=== PATIENT | male | born 1980 | race African-American/Black ===

== ENCOUNTER 2016-10-09 15:34 | Inpatient (IN) | payer OTHER ==
[2016-10-09] MEDS ORDERED: RX INFO: IV CONTRAST WAS GIVEN 1 EACH MISC MISCELLANE PRN (16:08)
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
[2016-10-09 17:05] LABS: Anisocytosis Slight; Basophils % (A) 0 %; CH 31.7; CHCM 35.4; Eosinophils # (A) 0.1 k/uL (0-0.7); Eosinophils % (A) 1 %; HCT 44.3 % (39.0-53.0); HGB 14.8 gm/dL (13.0-17.5); Luc % (Auto) 2; Lymphocytes # (A) 1.3 k/uL (1.0-4.8); Lymphocytes % (A) 20 %; MCH 30.2 pg (25.0-35.0); MCHC 33.5 g/dL (31.0-37.0); MCV 90.2 fL (80.0-100.0); Mean Platelet Volume 7.9; Monocytes # (A) 0.3 k/uL (0-1.0); Monocytes % (A) 6 %; Neutrophils # (A) 4.4 k/uL (1.3-7.7); Neutrophils % (A) 71 %; RBC 4.91 m/uL (4.30-5.90); RDW 16.3 % (11.5-15.5); WBC 6.2 k/uL (3.8-10.6)
[2016-10-09 17:14] LABS: ALT 24 U/L (21-72); AST 21 U/L (17-59); Alkaline Phosphatase 87 U/L (38-126); Anion Gap 7 mmol/L; Blood Urea Nitrogen 12 mg/dL (9-20); Calcium 9.6 mg/dL (8.4-10.2); Carbon Dioxide 28 mmol/L (22-30); Chloride 107 mmol/L (98-107); Glucose 91 mg/dL (74-99); Non-African American GFR(MDRD) >60 (>60 ml/min/1.73 sqM); Potassium 4.3 mmol/L (3.5-5.1); Sodium 142 mmol/L (137-145); Total Bilirubin 0.5 mg/dL (0.2-1.3); Total Protein 7.4 g/dL (6.3-8.2)
--- NOTE | 2016-10-09 18:17 | CT ---
EXAMINATION TYPE: CT angio head neck DATE OF EXAM: 10/09/2016 HISTORY: HANGING SUICIDE ATTEMPT X3 DAYS AGO. Pain. COMPARISON: NONE CT DLP: 293.5 mGycm. Automated Exposure Control for Dose Reduction was Utilized. TECHNIQUE: CTA scan of the head and neck are performed with IV Contrast, patient injected with 65 mL of Omnipaque 350, axial images are obtained, coronal and sagittal reformatted images are reviewed. T hree-D reconstructed images are created on an independent workstation and reviewed. FINDINGS: Carotid/Vascular Structures: There is bovine type arch which is normal variant. No significant plaque in the aortic arch or branching vessels is present. The right common carotid artery shows normal or igin from the right brachiocephalic artery. There is no significant plaque or stenosis along course o f the right common or internal carotid artery. There is patent external carotid artery without signif icant stenosis. There is no significant plaque or stenosis in the left common or internal carotid arteries including at level of carotid bulb. There is patent left external carotid artery without significant plaque or stenosis. No linear hypodensity to suggest dissection is seen in carotid or vertebral arteries. There is codomi nant vertebral basilar system. Vertebral arteries are patent to basilar junction. Hypoplastic posteri or communicating arteries are noted bilaterally. No significant stenosis or aneurysmal change is seen . Anterior circulation shows no significant plaque or stenosis. Patent anterior communicating artery is not well visualized. Other: There is right globe proptosis identified. There is acute comminuted fracture deformity throug h the right inferior orbital floor. No inferior displacement of inferior rectus muscle is seen. There is intraorbital emphysema inferiorly present. There is moderate preseptal hematoma anteriorly and in feriorly noted. There is dependent opacification or hemorrhage with air-fluid level in the right maxi llary sinus. There is additional comminuted fracture deformity medial wall right orbit. The intracona l fat is preserved. Visualized brain parenchyma shows no hydrocephalus or midline shift. The airway is patent. Lung apices are clear. No acute cervical fracture is identified. IMPRESSION: 1. No significant stenosis in common or internal carotid arteries bilaterally. No evidence of dissect ion in carotid or vertebral arteries bilaterally. 2. No significant stenosis or aneurysmal change in the [place]. 3. Acute comminuted blowout type fracture inferior right orbital floor with additional comminuted dis placed medial right orbital wall fracture. Proptosis of right globe is seen. There is moderate presep ron hematoma. No post septal hematoma identified. Intraorbital emphysema is seen. Small amount of hem orrhage into right maxillary sinus is noted. Ophthalmology consult advised.
[2016-10-09] MEDS ORDERED: ZIPRASIDONE 20 MG VIAL IM PRN (22:41)
[2016-10-09] MEDS ORDERED: MAG HYDROX/AL HYDROX/SIMETH 30 ML CUP PO PRN (22:41)
[2016-10-09] MEDS ORDERED: MAGNESIUM HYDROXIDE 2,400 MG/10 ML CUP PO PRN (22:41)
[2016-10-09] MEDS ORDERED: hydrOXYzine PAMOATE 25 MG CAP PO PRN (22:48)
[2016-10-09] MEDS: CLINDAMYCIN 150 MG CAP PO SCH (22:54)
[2016-10-09 23:24] LABS: Appearance,Urine Clear (Clear); Bilirubin,Urine Negative (Negative); Glucose,Urine (UA) Negative (Negative); Ketones,Urine Negative (Negative); Leukocyte Esterase,Urine Negative (Negative); Nitrite,Urine Negative (Negative); PH, Urine 7.5 (5.0-8.0); Protein,Urine Negative (Negative); UA Billing (MACRO vs. MICRO) CHEM; Urobilinogen,Urine <2.0 mg/dL (<2.0)
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
[2016-10-10] MEDS: CLINDAMYCIN 150 MG CAP PO SCH ×4 (06:25→23:07)
[2016-10-10] MEDS: PARoxetine 20 MG TAB PO SCH (08:33)
[2016-10-10] MEDS: LITHIUM CARBONATE 300 MG CAP PO SCH ×2 (08:33→20:00)
[2016-10-10] MEDS: RITONAVIR 100 MG TAB PO SCH ×3 (08:33→15:50)
[2016-10-10] MEDS: ALBUTEROL INHALER 60 PUFF/8 GM INHALER INHALATION PRN (09:35)
[2016-10-10 12:08] LABS: Lithium 0.7 mmol/L
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
[2016-10-10] MEDS: Darunavir Ethanolate [Prezista] 800 MG PO SCH (15:50)
[2016-10-10] MEDS: ABACAVIR LAMIVUDINE PO SCH (15:50)
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
[2016-10-11] MEDS: ACETAMINOPHEN TAB 325 MG TAB PO PRN ×2 (01:58→09:02)
[2016-10-11] MEDS: LEVOTHYROXINE 50 MCG TAB PO SCH (06:32)
[2016-10-11] MEDS: CLINDAMYCIN 150 MG CAP PO SCH ×4 (06:32→23:04)
[2016-10-11] MEDS: Darunavir Ethanolate [Prezista] 800 MG PO SCH (08:58)
[2016-10-11] MEDS: ABACAVIR LAMIVUDINE PO SCH (08:58)
[2016-10-11] MEDS: RITONAVIR 100 MG TAB PO SCH (08:59)
[2016-10-11] MEDS: PARoxetine 20 MG TAB PO SCH (09:02)
[2016-10-11] MEDS: LITHIUM CARBONATE 300 MG CAP PO SCH ×2 (09:02→20:28)
[2016-10-11] MEDS: ALBUTEROL INHALER 60 PUFF/8 GM INHALER INHALATION PRN (09:25)
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
[2016-10-12] MEDS: LEVOTHYROXINE 50 MCG TAB PO SCH (06:16)
[2016-10-12] MEDS: CLINDAMYCIN 150 MG CAP PO SCH ×2 (06:16→14:33)
[2016-10-12] MEDS: ALBUTEROL INHALER 60 PUFF/8 GM INHALER INHALATION PRN (08:56)
[2016-10-12] MEDS: PARoxetine 20 MG TAB PO SCH ×2 (10:18→10:54)
[2016-10-12] MEDS: Darunavir Ethanolate [Prezista] 800 MG PO SCH ×2 (10:18→10:55)
[2016-10-12] MEDS: LITHIUM CARBONATE 300 MG CAP PO SCH ×3 (10:18→20:51)
[2016-10-12] MEDS: ABACAVIR LAMIVUDINE PO SCH ×2 (10:18→10:55)
[2016-10-12] MEDS: RITONAVIR 100 MG TAB PO SCH ×2 (10:19→10:54)
--- NOTE | 2016-10-12 10:25 | P.PN ---
Progress Note - Text Interval history: The patient's is found in his room he follows me to an interview room. He reports his mood continues to be depressed he still feels worthless and is still ambivalent about surviving the suicide attempt. He feels that he has no purpose. He reported having some nausea this morning yesterday he states he attended groups. He was seen by the internal medicine group and was started on levothyroxine for an elevated TSH presumed to be subclinical hypothyroidism in the context of lithium use. The patient continues to feel that he has done the best with the Paxil and lithium. He describes having some difficulty falling asleep we decided to initiate melatonin. Mental status exam: The patient is an alert -Maur[place] male he has right- sided infraorbital bruising and resolving hemorrhage of his right sclera. Eye contact is appropriate speech is soft spontaneous fluent. He endorses a continued depressed mood with hopelessness feelings. He reports passive suicidal ideation. He reports no homicidal ideation. He endorses no auditory or visual hallucinations or specific delusions. There is no evidence of psychosis. He does not appear hypomanic or manic. Insight and judgment limited. He demonstrates no verbal or physical aggressiveness. Plan: The patient will continue on his current psychotropic medications. I will discontinue the Vistaril and we will add melatonin 5 mg at bedtime. Vital signs reviewed. He is encouraged to continue participating in group. We will monitor him for safety. He requires continued psychiatric hospitalization.
--- NOTE | 2016-10-12 17:22 | P.PN ---
Subjective Principal diagnosis: Patient seen and examined today per RN request due to hypotension and diarrhea 36-year-old male was currently incarcerated in prison but was sent to inpatient psych due to suicidal attempt. I saw the patient today for our own request due to reports of hypotension. Patient was seen walking in the hallways, patient reports some dizziness in the morning however this has been resolved now. However patient reports that he developed some diarrhea for the past 2 days to 3 days at least 3 times a day he described it as watery large amount without any tenesmus , however he experienced some epigastric abdominal pain squeezing in nature 7 out of 10 in severity associated with feeling nauseous followed by throwing up his breakfast this morning, he thinks it was related to the food he ate. He otherwise denies any fevers or chills any changes in his urination denies any GI bleeding. It seems like patient was started on clindamycin upon admission however I could not find documentation for why he was started on its. Objective - Vital Signs Vital signs: Vital Signs Temp 98.2 F 10/12/16 12:45 Pulse 66 10/12/16 12:45 Resp 16 10/12/16 12:45 BP 86/53 10/12/16 12:45 Pulse Ox 100 10/09/16 22:16 Constitutional: vital signs stable, Not in acute distress, pleasant, conversant Eyes: Bruising over the right eye, right eye subconjunctival hemorrhage with sparing of the limbus , pupils equal round and reactive to light Lungs: Clear to auscultation bilaterally, clear to percussion, normal respiratory effort no use of accessory muscles Cardiovascular: Regular rate and rhythm, no murmurs, no gallops, no rubs, no peripheral edema Gastrointestinal: Soft, no tenderness to palpation, no palpable hepatosplenomegally, bowel sounds positive, no abdominal wall hernias Psych: Alert, oriented to place, person and time - Labs CBC & Chem 7: 10/09/16 16:50 10/09/16 16:50 Assessment and Plan (1) Hypotension Narrative/Plan: This was symptomatic earlier this morning however symptoms has resolved Continue to monitor vital signs closely, if hypotension persists consider IV fluid bolus with normal saline 0.9% This could be due to ongoing diarrhea Check basic metabolic Status: Acute (2) Acute diarrhea Narrative/Plan: This could be secondary to antibiotic side effect Rule out C. diff Patient was recently started on antibiotics upon admission, I could not find documentation for exactly why it was started. Discontinue clindamycin Check C. diff and stool Patient afebrile Status: Acute (3) Subconjunctival hemorrhage of right eye Narrative/Plan: This seems to be stable and self-limited secondary to the fall Status: Acute
[2016-10-12] MEDS ORDERED: MELATONIN 5 MG TABLET PO SCH (21:00)
[2016-10-13] MEDS: LEVOTHYROXINE 50 MCG TAB PO SCH (05:56)
[2016-10-13 10:02] LABS: Anion Gap 9 mmol/L; Blood Urea Nitrogen 15 mg/dL (9-20); Calcium 10.1 mg/dL (8.4-10.2); Carbon Dioxide 27 mmol/L (22-30); Chloride 105 mmol/L (98-107); Glucose 101 mg/dL (74-99); Non-African American GFR(MDRD) >60 (>60 ml/min/1.73 sqM); Potassium 5.2 mmol/L (3.5-5.1); Sodium 141 mmol/L (137-145)
[2016-10-13 10:19] VITALS: BMI 25.2
[2016-10-13] MEDS: ABACAVIR LAMIVUDINE PO SCH (10:45)
[2016-10-13] MEDS: Darunavir Ethanolate [Prezista] 800 MG PO SCH (10:45)
[2016-10-13] MEDS: RITONAVIR 100 MG TAB PO SCH (10:46)
[2016-10-13] MEDS: PARoxetine 20 MG TAB PO SCH (10:47)
[2016-10-13] MEDS: LITHIUM CARBONATE 300 MG CAP PO SCH ×2 (10:47→20:29)
--- NOTE | 2016-10-13 11:01 | P.PN ---
Progress Note - Text Interval history: The patient is found in group he follows me to an interview room. He reports that he continues to be sad but he feels that he is starting to work through some of his grief. He had a supportive conversation with his mother who is overseen arrangements for his partner. The patient was able to get in contact with his 20-year-old son which was reassuring as well. He continues to have difficulty with sleep and feels that the melatonin may have had an opposite effect last evening. We discussed trying trazodone instead. He is attending groups. He is able to describe the content of the discussion in group prior to our session. He continues to feel that his other psychotropics provide benefit. Mental status exam: The patient is an -Citizen Of [place] male appearing his stated age, the right infraorbital bruising is slowly resolving. He is dressed in hospital attire. Eye contact is appropriate speech is fluent and spontaneous nonpressured. He denies having any suicidal or homicidal ideation intent or plan as he feels safe in the hospital. He continues to endorse a depressed mood. He has had some tearfulness but he feels staying busy throughout the day helps him from crying excessively. No verbal or physical aggressiveness observed. Affect demonstrates an appropriate range. He is reporting no auditory or visual hallucinations there is no report or evidence of specific delusions. He does not appear hypomanic or manic. Plan: The patient will continue on his current medications however we will discontinue the melatonin and initiate trazodone 50 mg at bedtime for sleep. We will monitor him for safety and encourage his participation in the milieu. He continues to work through his grief reaction.
--- NOTE | 2016-10-13 17:00 | P.PN ---
Subjective Principal diagnosis: Patient seen and examined today in follow up for hypotension and diarrhea 36-year-old male was currently incarcerated in penitentiary but was sent to inpatient psych due to suicidal attempt. Patient was seen and examined today, he reports resolution of his diarrhea as he had no loose bowel movements since yesterday evening. He denies any dizziness or lightheadedness denies any chest pain or shortness of breath he denies any nausea or vomiting. He denies any abdominal pain. Patient reports no pain when he moves his right eye Objective - Vital Signs Vital signs: Vital Signs Temp 98.8 F 10/13/16 10:08 Pulse 70 10/13/16 10:08 Resp 14 10/13/16 10:08 BP 111/71 10/13/16 10:08 Pulse Ox 100 10/13/16 10:08 Intake & Output 10/12/16 10/13/16 10/13/16 18:59 06:59 18:59 Weight 72.1 kg Constitutional: vital signs stable, Not in acute distress, pleasant, conversant Eyes: Pupils equal round reactive to light , stable right subconjunctival hemorrhage, bruising in the periorbital region, no ophthalmoplegia Cardiovascular: Regular rate and rhythm, no peripheral edema Psych: Alert, oriented to place, person and time Labs reviewed - Labs CBC & Chem 7: 10/09/16 16:50 10/13/16 08:45 Labs: Abnormal Lab Results - Last 24 Hours (Table) 10/13/16 Range/Units 08:45 Potassium 5.2 H (3.5-5.1) mmol/L Creatinine 1.27 H (0.66-1.25) mg/dL Glucose 101 H (74-99) mg/dL Assessment and Plan (1) Hyperkalemia Narrative/Plan: Monitor potassium level this is mild and asymptomatic at this point Status: Acute (2) Hypotension Status: Resolved (3) Acute diarrhea Narrative/Plan: Still await C. diff results as patient was on clindamycin for 3 days prior to developing diarrhea Status: Resolved (4) Subconjunctival hemorrhage of right eye Narrative/Plan: This seems to be stable and self-limited secondary to the fall Patient was seen by ENT in the some altered in the ED and deemed him to be stable Status: Acute (5) DVT prophylaxis Narrative/Plan: Patient is ambulatory and low risk Status: Acute
[2016-10-13] MEDS: traZODone HCL 50 MG TAB PO SCH (20:29)
[2016-10-14] MEDS: LEVOTHYROXINE 50 MCG TAB PO SCH (05:55)
[2016-10-14] MEDS: ABACAVIR LAMIVUDINE PO SCH (09:06)
[2016-10-14] MEDS: Darunavir Ethanolate [Prezista] 800 MG PO SCH (09:06)
[2016-10-14] MEDS: LITHIUM CARBONATE 300 MG CAP PO SCH ×2 (09:06→22:21)
[2016-10-14] MEDS: PARoxetine 20 MG TAB PO SCH (09:07)
[2016-10-14] MEDS: RITONAVIR 100 MG TAB PO SCH (09:07)
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
[2016-10-14 09:49] LABS: Potassium 4.3 mmol/L (3.5-5.1)
[2016-10-14] MEDS: traZODone HCL 50 MG TAB PO SCH (22:21)
[2016-10-15] MEDS: LEVOTHYROXINE 50 MCG TAB PO SCH (09:13)
[2016-10-15] MEDS: ABACAVIR LAMIVUDINE PO SCH (09:14)
[2016-10-15] MEDS: RITONAVIR 100 MG TAB PO SCH (09:14)
[2016-10-15] MEDS: LITHIUM CARBONATE 300 MG CAP PO SCH ×2 (09:14→21:20)
[2016-10-15] MEDS: PARoxetine 20 MG TAB PO SCH (09:14)
[2016-10-15] MEDS: Darunavir Ethanolate [Prezista] 800 MG PO SCH (09:15)
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
[2016-10-15] MEDS: ALBUTEROL INHALER 60 PUFF/8 GM INHALER INHALATION PRN (19:44)
[2016-10-15] MEDS: traZODone HCL 50 MG TAB PO SCH (21:20)
[2016-10-15] MEDS: ACETAMINOPHEN TAB 325 MG TAB PO PRN (21:21)
[2016-10-16] MEDS: LEVOTHYROXINE 50 MCG TAB PO SCH (05:51)
[2016-10-16 06:41] VITALS: RESP 18
[2016-10-16] MEDS: ALBUTEROL INHALER 60 PUFF/8 GM INHALER INHALATION PRN ×2 (08:55→21:02)
[2016-10-16] MEDS: RITONAVIR 100 MG TAB PO SCH (09:58)
[2016-10-16] MEDS: LITHIUM CARBONATE 300 MG CAP PO SCH ×2 (09:58→21:29)
[2016-10-16] MEDS: PARoxetine 20 MG TAB PO SCH (09:58)
[2016-10-16] MEDS: Darunavir Ethanolate [Prezista] 800 MG PO SCH (09:58)
[2016-10-16] MEDS: ABACAVIR LAMIVUDINE PO SCH (09:59)
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
[2016-10-16] MEDS: traZODone HCL 50 MG TAB PO SCH (21:30)
[2016-10-17 07:03] VITALS: BP 109/57; PULSE 65; TEMP 97.7
[2016-10-17] MEDS: ALBUTEROL INHALER 60 PUFF/8 GM INHALER INHALATION PRN (08:47)
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
[2016-10-17] MEDS: RITONAVIR 100 MG TAB PO SCH (10:00)
[2016-10-17] MEDS: LITHIUM CARBONATE 300 MG CAP PO SCH (10:00)
[2016-10-17] MEDS: Darunavir Ethanolate [Prezista] 800 MG PO SCH (10:00)
[2016-10-17] MEDS: PARoxetine 20 MG TAB PO SCH (10:00)
[2016-10-17] MEDS: ABACAVIR LAMIVUDINE PO SCH (10:00)
== END 2016-10-17 10:44 | DRG 885 ==
LOC: EC 15:34 → 3MHU 21:44
PROVIDERS: ADMIT Psychiatry & Neurology Psychiatry; ATTEND Psychiatry & Neurology Psychiatry
DX: F31.30 Bipolar disorder, current episode depressed, mild or moderate severity, unspecified (principal); T71.162A Asphyxiation due to hanging, intentional self-harm, initial encounter; B20 Human immunodeficiency virus [HIV] disease; F15.20 Other stimulant dependence, uncomplicated; E87.5 Hyperkalemia; S02.31XA Fracture of orbital floor, right side, initial encounter for closed fracture; E03.9 Hypothyroidism, unspecified; F17.200 Nicotine dependence, unspecified, uncomplicated; H11.31 Conjunctival hemorrhage, right eye; J45.909 Unspecified asthma, uncomplicated; F41.9 Anxiety disorder, unspecified; Z63.4 Disappearance and death of family member; Z65.3 Problems related to other legal circumstances; Z79.899 Other long term (current) drug therapy; Z88.0 Allergy status to penicillin; Z91.018 Allergy to other foods
CPT/HCPCS: 36415; 70496; 70498; 80048; 80051; 80053; 80178; 80306; 81003; 82075; 84439; 84443; 85025; 86360; 94640; 99285